=== PATIENT | male | born 2000 | race African-American/Black ===

== ENCOUNTER 2023-08-20 23:31 | Emergency (ER) | payer BC, OTHER ==
[2023-08-21] MEDS ORDERED: METHYLPREDNISOLONE 125 MG INJ ONE (00:02)
[2023-08-21] MEDS ORDERED: predniSONE 20 MG TAB ONE (00:03)
[2023-08-21] MEDS ORDERED: NA CHLORIDE 0.9% 1,000 ML ONE (00:03)
[2023-08-21] MEDS ORDERED: FAMOTIDINE 20 MG/2 ML VIAL IV ONE (00:03)
[2023-08-21] MEDS ORDERED: DIPHENHYDRAMINE 50 MG/ML VIAL ONE (00:03)
[2023-08-21 00:25] LABS: Absolute Eosinophils 0.1 K/uL (0-0.5); Absolute Lymphocytes (CBC) 1.8 K/uL (0.7-4.9); Absolute Monocytes 0.6 K/uL (0.1-1.3); Absolute Neutrophil 4.1 K/uL (1.8-8.0); Basophils % 0.6 % (0-1.3); Eosinophils % 1.6 % (0-4.4); Hematocrit 37.4 % (39.6-49.0); Hemoglobin 12.5 g/dL (13.6-17.9); Lymphocytes % 27.3 % (15.3-44.8); MCH 28.2 pg (27.0-35.0); MCHC 33.4 g/dL (32.0-36.0); MCV 84.4 fL (80-100); MPV 7.9 fL (7.6-11.3); Monocytes % 9.5 % (3.3-12.3); Nucleated Red Blood Cells % 0.1 % (0-0); Platelets 224 thou/uL (152-406); RBC Red Blood Cell Count 4.43 M/uL (4.33-5.43)
[2023-08-21 00:52] LABS: Albumin 3.2 g/dL (3.4-5.0); Albumin/Globulin Ratio 0.9 (1.1-1.8); Bilirubin Total 0.3 mg/dL (0.2-1.0); Globulin 3.4 g/dL (2.3-3.5); Protein, Total 6.6 g/dL (6.4-8.2)
--- NOTE | 2023-08-21 02:54 | ER ---
Nurse's Notes [facility] Name: Hamilton Sheppard Age: 22 yrs Sex: Male : 2000 Arrival Date: 08/20/2023 Time: 23:31 Bed 8 Private MD: Diagnosis: Dysphagia, unspecified;Angioneurotic edema Presentation: 08/19 23:34 Chief complaint: EMS states: 22 year old male reported having his throat swollen to the ha1 nurse at the intermediate facility. on our arrival he reported sore throat. by inspection no swelling noticed. He refuses to speak because his throat hurts. Coronavirus screen: Vaccine status: Patient reports being unvaccinated. Ebola Screen: No symptoms or risks identified at this time. Initial Sepsis Screen: Does the patient meet any 2 criteria? No. Patient's initial sepsis screen is negative. Does the patient have a suspected source of infection? No. Patient's initial sepsis screen is negative. Risk Assessment: Do you want to hurt yourself or someone else? Patient reports no desire to harm self or others. Onset of symptoms was August 20, 2023. 23:34 Method Of Arrival: EMS: [facility] ha1 23:34 Acuity: RO 4 ha1 Triage Assessment: 23:34 General: Appears comfortable, Behavior is calm, cooperative. Pain: Complains of pain in ha1 sore throat Pain does not radiate. Pain currently is 7 out of 10 on a pain scale. Quality of pain is described as throbbing. EENT: Oral mucosa is moist. Neuro: Level of Consciousness is awake, alert, obeys commands, Oriented to person, place, time, situation. Cardiovascular: Capillary refill < 3 seconds Patient's skin is warm and dry. Respiratory: Reports sore throat Airway is patent Respiratory effort is even, unlabored, Respiratory pattern is regular, symmetrical. GI: No signs and/or symptoms were reported involving the gastrointestinal system. Historical: - Allergies: 23:43 No Known Allergies; ha1 - Immunization history:: Adult Immunizations not up to date. - Infectious Disease History:: Denies. - Social history:: Smoking status: Patient denies any tobacco usage or history of. Screenin:45 [facility] ED Fall Risk Assessment (Adult) History of falling in the last 3 months, 1 including since admission No falls in past 3 months (0 pts) Confusion or Disorientation No (0 pts) Intoxicated or Sedated No (0 pts) Impaired Gait No (0 pts) Mobility Assist Device Used No (0 pt) Altered Elimination No (0 pt) Score/Fall Risk Level 0 - 2 = Low Risk Oriented to surroundings, Maintained a safe environment, Educated pt \T\ family on fall prevention, incl call for assistance when getting out of bed, Hourly rounding (assess needs \T\ fall precautionary measures) done. Abuse screen: Denies threats or abuse. Denies injuries from another. Nutritional screening: No deficits noted. Tuberculosis screening: No symptoms or risk factors identified. Assessment: 23:46 Reassessment: see triage assessment. 1 08/20 00:45 Reassessment: Patient and/or family updated on plan of care and expected duration. Pain ha1 level reassessed. Patient is alert, oriented x 3, equal unlabored respirations, skin warm/dry/pink. 01:40 Reassessment: Patient and/or family updated on plan of care and expected duration. Pain ha1 level reassessed. Respiratory: Airway is patent Respiratory effort is even, unlabored, Respiratory pattern is regular, symmetrical. 02:44 Reassessment: eyes closed. Respiratory: Airway is patent Trachea midline Respiratory ha1 effort is even, unlabored, Respiratory pattern is regular, symmetrical. Vital Signs: 08/19 23:34 BP 110 / 92; Pulse 66; Resp 16 S; Temp 97.9; Pulse Ox 99% on R/A; Weight 81.65 kg; ha1 08/20 00:00 BP 110 / 59; Pulse 68; Resp 16; Pulse Ox 99% on R/A; km8 00:31 BP 158 / 88; Pulse 68; Resp 16; Pulse Ox 100% ; km8 01:30 BP 130 / 66; Pulse 65; Resp 17 S; Pulse Ox 100% on R/A; ha1 02:30 BP 128 / 67; Pulse 62; Resp 17 S; Pulse Ox 99% on R/A; ha1 ED Course: 08/19 23:34 Patient arrived in ED. 1 23:34 Patient has correct armband on for positive identification. Placed in gown. Bed in low ha1 position. Call light in reach. Side rails up X 1. 23:36 Ayush Mayo MD is Attending Physician. [facility] 23:43 Triage completed. ha1 23:46 Maintain EMS IV. Dressing intact. Good blood return noted. Site clean \T\ dry. Gauge \T\ bourne 1 site: 20 gauge left forearm . 08/20 00:17 Comprehensive Metabolic Panel Sent. ha1 00:17 CBC with Diff Sent. ha1 00:52 Arm band placed on right wrist. km8 01:26 CT Soft Tissue Neck W/contr In Process Unspecified. EDMS 02:57 Provided Education on: d/c teaching. km8 02:58 No provider procedures requiring assistance completed. km8 02:58 IV discontinued, intact, bleeding controlled, No redness/swelling at site. Pressure km8 dressing applied. Administered Medications: 00:12 Drug: diphenhydrAMINE IVP 50 mg IVP once Route: IVP; Site: left forearm; ha1 00:45 Follow up: Response: No adverse reaction; Marked relief of symptoms ha1 00:14 Drug: Famotidine IVP 40 mg IVP once; dilute with 10 mL 0.9% NaCl; give over 2 minutes ha1 Route: IVP; Site: left forearm; 00:45 Follow up: Response: No adverse reaction; Marked relief of symptoms ha1 00:16 Drug: MethylPrednisoLONE IVP 125 mg IVP once Route: IVP; Site: left forearm; ha1 00:45 Follow up: Response: No adverse reaction; Marked relief of symptoms ha1 00:16 Drug: predniSONE PO 60 mg PO once Route: PO; ha1 00:45 Follow up: Response: No adverse reaction; Marked relief of symptoms ha1 00:17 Drug: NS 0.9% IV 1000 ml IV at 1 bolus Per protocol; 1000 mL bolus Route: IV; Rate: 1 ha1 bolus; Site: left forearm; 02:47 Follow up: IV Status: Completed infusion; IV Intake: 1000ml km8 Medication: 00:52 VIS not applicable for this client. km8 Intake: 02:47 IV: 1000ml; Total: 1000ml. km8 Outcome: 02:53 Discharge ordered by . [facility] 03:06 Discharged to back to group home with [employer] km8 03:06 Condition: good 03:06 Discharge instructions given to patient, police, Instructed on discharge instructions, follow up and referral plans. medication usage, Demonstrated understanding of instructions, follow-up care, medications, Prescriptions given X 4, 03:08 Patient left the ED. km8 Signatures: Dispatcher [employer] Ayush Lovelace MD MD cha Ayala, Heidy, RN RN ha1 Nayeli Corbett RN RN km8
--- NOTE | 2023-08-21 02:54 | EDPHYS ---
Physician Documentation [facility] Name: Hamilton Sheppard Age: 22 yrs Sex: Male : 2000 Arrival Date: 08/20/2023 Time: 23:31 Bed 8 Private MD: ED Physician Ayush Mayo HPI: 08/19 23:56 This 22 yrs old Black Male presents to ER via EMS with complaints of Allergic Reaction. roya 23:56 The patient presents with difficulty swallowing, hoarse voice. Onset: The roya symptoms/episode began/occurred today. Associated signs and symptoms: The patient has no apparent associated signs or symptoms. Possible causes: The patient has no known obvious cause for the symptoms. At home the patient or guardian has treated the symptoms with nothing. Severity of symptoms: At their worst the symptoms were mild in the emergency department the symptoms are unchanged. The patient has not experienced similar symptoms in the past. Historical: - Allergies: 23:43 No Known Allergies; ha1 - Immunization history:: Adult Immunizations not up to date. - Infectious Disease History:: Denies. - Social history:: Smoking status: Patient denies any tobacco usage or history of. ROS: 23:57 Constitutional: Negative for fever, chills, and weight loss, Eyes: Negative for injury, roya pain, redness, and discharge, Neck: Negative for injury, pain, and swelling, Cardiovascular: Negative for chest pain, palpitations, and edema, Respiratory: Negative for shortness of breath, cough, wheezing, and pleuritic chest pain, Abdomen/GI: Negative for abdominal pain, nausea, vomiting, diarrhea, and constipation, Back: Negative for injury and pain, : Negative for injury, bleeding, discharge, and swelling, MS/Extremity: Negative for injury and deformity, Skin: Negative for injury, rash, and discoloration, Neuro: Negative for headache, weakness, numbness, tingling, and seizure, Psych: Negative for depression, anxiety, suicide ideation, homicidal ideation, and hallucinations, Allergy/Immunology: Negative for hives, rash, and allergies, Endocrine: Negative for neck swelling, polydipsia, polyuria, polyphagia, and marked weight changes, Hematologic/Lymphatic: Negative for swollen nodes, abnormal bleeding, and unusual bruising, 23:57 ENT: Positive for difficulty swallowing, hoarseness, Exam: 23:57 Constitutional: This is a well developed, well nourished patient who is awake, alert, roya and in no acute distress. Head/Face: Normocephalic, atraumatic. Eyes: Pupils equal round and reactive to light, extra-ocular motions intact. Lids and lashes normal. Conjunctiva and sclera are non-icteric and not injected. Cornea within normal limits. Periorbital areas with no swelling, redness, or edema. ENT: Nares patent. No nasal discharge, no septal abnormalities noted. Tympanic membranes are normal and external auditory canals are clear. Oropharynx with no redness, swelling, or masses, exudates, or evidence of obstruction, uvula midline. Mucous membranes moist. Neck: Trachea midline, no thyromegaly or masses palpated, and no cervical lymphadenopathy. Supple, full range of motion without nuchal rigidity, or vertebral point tenderness. No Meningismus. Chest/axilla: Normal chest wall appearance and motion. Nontender with no deformity. No lesions are appreciated. Cardiovascular: Regular rate and rhythm with a normal S1 and S2. No gallops, murmurs, or rubs. Normal PMI, no JVD. No pulse deficits. Respiratory: Lungs have equal breath sounds bilaterally, clear to auscultation and percussion. No rales, rhonchi or wheezes noted. No increased work of breathing, no retractions or nasal flaring. Abdomen/GI: Soft, non-tender, with normal bowel sounds. No distension or tympany. No guarding or rebound. No evidence of tenderness throughout. Back: No spinal tenderness. No costovertebral tenderness. Full range of motion. Male : Normal genitalia with no discharge or lesions. Skin: Warm, dry with normal turgor. Normal color with no rashes, no lesions, and no evidence of cellulitis. MS/ Extremity: Pulses equal, no cyanosis. Neurovascular intact. Full, normal range of motion. Neuro: Awake and alert, GCS 15, oriented to person, place, time, and situation. Cranial nerves II-XII grossly intact. Motor strength 5/5 in all extremities. Sensory grossly intact. Cerebellar exam normal. Normal gait. Psych: Awake, alert, with orientation to person, place and time. Behavior, mood, and affect are within normal limits. Vital Signs: 23:34 BP 110 / 92; Pulse 66; Resp 16 S; Temp 97.9; Pulse Ox 99% on R/A; Weight 81.65 kg; 1 08/20 00:00 BP 110 / 59; Pulse 68; Resp 16; Pulse Ox 99% on R/A; km8 00:31 BP 158 / 88; Pulse 68; Resp 16; Pulse Ox 100% ; km8 01:30 BP 130 / 66; Pulse 65; Resp 17 S; Pulse Ox 100% on R/A; ha1 02:30 BP 128 / 67; Pulse 62; Resp 17 S; Pulse Ox 99% on R/A; ha1 MDM: 08/19 23:36 Patient medically screened. [facility] 08/20 00:00 Differential diagnosis: anaphylaxis, angioedema, Epiglottis foreign body or airway roya obstruction Vocal Cord Dysfunction. Data reviewed: vital signs, nurses notes, lab test result(s), radiologic studies. Consideration of Admission/Observation Escalation of care including admission/observation considered. I considered the following discharge prescriptions or medication management in the emergency department Medications were administered in the Emergency Department. See MAR. Independent interpretation of the following test(s) in the Emergency Department CT Scan: My interpretation is ct soft tissues. Test considered but Not performed: EKG: no ekg . Historians other than the Patient: Law enforcement: tdc report. Care significantly affected by the following chronic conditions: none. 00:01 Counseling: I had a detailed discussion with the patient and/or guardian regarding the [facility] historical points, exam findings, and any diagnostic results supporting the discharge/admit diagnosis, lab results, radiology results, the need for outpatient follow up, for definitive care, a family practitioner. 08/19 23:46 Order name: CBC with Diff; Complete Time: 00:57 [facility] 08/19 23:46 Order name: Comprehensive Metabolic Panel; Complete Time: 00:57 [facility] 08/19 23:55 Order name: CT Soft Tissue Neck W/contr [facility] 08/20 01:32 Order name: PO challenge; Complete Time: 01:42 [facility] Administered Medications: 00:12 Drug: diphenhydrAMINE IVP 50 mg IVP once Route: IVP; Site: left forearm; ha1 00:45 Follow up: Response: No adverse reaction; Marked relief of symptoms ha1 00:14 Drug: Famotidine IVP 40 mg IVP once; dilute with 10 mL 0.9% NaCl; give over 2 minutes ha1 Route: IVP; Site: left forearm; 00:45 Follow up: Response: No adverse reaction; Marked relief of symptoms ha1 00:16 Drug: MethylPrednisoLONE IVP 125 mg IVP once Route: IVP; Site: left forearm; ha1 00:45 Follow up: Response: No adverse reaction; Marked relief of symptoms ha1 00:16 Drug: predniSONE PO 60 mg PO once Route: PO; ha1 00:45 Follow up: Response: No adverse reaction; Marked relief of symptoms ha1 00:17 Drug: NS 0.9% IV 1000 ml IV at 1 bolus Per protocol; 1000 mL bolus Route: IV; Rate: 1 ha1 bolus; Site: left forearm; 02:47 Follow up: IV Status: Completed infusion; IV Intake: 1000ml km8 Disposition Summary: 08/21/23 02:53 Discharge Ordered Notes: Location: Home roya Problem: new roya Symptoms: have improved roya Condition: Stable roya Diagnosis - Dysphagia, unspecified roya - Angioneurotic edema roya Followup: roya - With: Private Physician - When: 2 - 3 days - Reason: Recheck today's complaints, Continuance of care, Re-evaluation by your physician Discharge Instructions: - Discharge Summary Sheet roya - Dysphagia roya - Angioedema roya - Angioedema, [id number] [facility] - Food Allergy, [id number] [facility] Forms: - Medication Reconciliation Form [facility] - Antibiotic Education roya - Prescription Opioid Use roya - Patient Portal Instructions [facility] - Leadership Thank You Letter [facility] Prescriptions: - EpiPen 0.3 mg/0.3 mL Injection Auto-Injector - administer 0.3 milliliter INTRAMUSCULAR route once may repeat once; 2 pen; [facility] Refills: 0, Product Selection Permitted - Benadryl 25 mg Oral capsule - take 2 capsule ORAL route every 6 hours As needed; 45 tablet; Refills: 0, [facility] Product Selection Permitted - Pepcid 20 mg Oral tablet - take 1 tablet ORAL route every 12 hours for 21 days; 42 tablet; Refills: 0, [facility] Product Selection Permitted - Prednisone 20 mg Oral Tablet - take 2 tablets ORAL route once daily for 5 days; 10 tablet; Refills: 0, Product [facility] Selection Permitted Signatures: Dispatcher [employer] Ayush Lovelace MD MD cha Ayala, Heidy, RN REBEKAH ha1 Nayeli Corbett RN km8
--- NOTE | 2023-08-22 14:25 | RAD REPORT ---
EXAM DESCRIPTION: CT NECK WITH IV CONTRAST CLINICAL HISTORY: PAIN COMPARISON: None. TECHNIQUE: CT NECK WITH IV CONTRAST on 08/20/2023 11:55 PM CDT This exam was performed according to our departmental dose-optimization program, which includes autom ated exposure control, adjustment of the mA and/or kV according to patient size and/or use of iterati ve reconstruction technique. FINDINGS: The visualized portions of the brain and orbits are normal. The oral cavity, oropharynx and nasopharynx are normal. The parapharyngeal fat planes are preserved . The hypopharynx is unremarkable. The parotid and submandibular glands are grossly within normal limits. No intrinsic mass lesions are seen. . The paranasal sinuses and mastoid air cells are clear. No definite pathologically enlarged lymph nodes are identified. The thyroid gland is normal in size and configuration. The thoracic inlet is normal. The superior mediastinum and lung apices are normal. No acute osseous abnormalities are identified. IMPRESSION: No acute findings. Electronically signed by: Pawan Neves MD 08/21/2023 02:50 AM CDT Due to temporary technical issues with the PACS/Fluency reporting system, reports are being signed by the in house radiologists without review as a courtesy to insure prompt reporting. The interpreting radiologist is fully responsible for the content of the report.
[2023-08-22 14:32] VITALS: BP 128/67; TEMP 97.9; O2SAT 99
== END 2023-08-21 03:08 | disposition home or self-care (01) ==
LOC: ER 23:31
DX: T78.3XXA Angioneurotic edema, initial encounter (principal)
CPT/HCPCS: 96361; 85025; 36415; 80053; 70491; 96375; 96374; 99284; Q9967; J7512; J1200; J2919; J7030